=== PATIENT | female | born 1985 | race Caucasian/White ===

== ENCOUNTER 2019-12-23 08:14 | Outpatient (REF) | payer OTHER, SELFPAY ==
[2019-12-23 11:54] LABS: Alanine Aminotransferase 15 U/L (0-31); Albumin Level 4.3 g/dL (3.5-5.0); Alkaline Phosphatase 50 U/L (39-117); Anion Gap 15 (12-20); Aspartate Amino Transferase 16 U/L (5-31); Bilirubin Total 0.3 mg/dL (0.0-1.0); Blood Urea Nitrogen 11 mg/dL (9-16); Calcium 9.2 mg/dL (8.4-10.2); Carbon Dioxide 22 mmol/L (22-29); Chloride 105 mmol/L (96-108); Cholesterol 210 mg/dL; Estimated Glomerular Filt Rate > 60; Glucose Fasting 88 mg/dL (60-99); HDL Cholesterol 42 mg/dL; LDL Cholesterol Calculated 146 mg/dl; Potassium 4.4 mmol/l (3.3-5.1); Sodium 138 mmol/L (135-145); Total Protein 6.9 g/dL (6.5-8.0); Triglycerides 113 mg/dL
[2019-12-23 11:57] LABS: TSH reflex Free T4 0.17 mIU/mL (0.32-4.0)
[2019-12-23 12:33] LABS: Free T4 (Free Thyroxine) 1.33 ng/dL (0.71-1.85)
== END 2019-12-23 08:15 | disposition home or self-care (01) ==
LOC: HO.HMGCLDS 08:14
PROVIDERS: PCP Internal Medicine; Visit Provider Internal Medicine
DX: E03.8 Other specified hypothyroidism (principal); E78.9 Disorder of lipoprotein metabolism, unspecified; E66.01 Morbid (severe) obesity due to excess calories; Z68.41 Body mass index [BMI] 40.0-44.9, adult
CPT/HCPCS: 80053; 80061; 84439; 84443

== ENCOUNTER 2020-04-21 07:20 | Outpatient (REF) | payer OTHER, SELFPAY ==
[2020-04-21 11:56] LABS: Alanine Aminotransferase 20 U/L (0-31); Albumin Level 4.3 g/dL (3.5-5.0); Alkaline Phosphatase 55 U/L (39-117); Anion Gap 14 (12-20); Aspartate Amino Transferase 20 U/L (5-31); Bilirubin Direct < 0.2 mg/dL (0.0-0.5); Bilirubin Total 0.4 mg/dL (0.0-1.0); Blood Urea Nitrogen 9 mg/dL (9-16); Calcium 9.3 mg/dL (8.4-10.2); Carbon Dioxide 25 mmol/L (22-29); Chloride 103 mmol/L (96-108); Cholesterol 256 mg/dL; Estimated Glomerular Filt Rate > 60; Glucose Fasting 81 mg/dL (60-99); HDL Cholesterol 45 mg/dL; LDL Cholesterol Calculated 184 mg/dl; Potassium 4.4 mmol/L (3.3-5.1); Sodium 138 mmol/L (135-145); Total Protein 7.1 g/dL (6.5-8.0); Triglycerides 137 mg/dL
[2020-04-21 12:00] LABS: TSH reflex Free T4 0.26 uIU/mL (0.32-4.0)
[2020-04-21 12:34] LABS: Free T4 (Free Thyroxine) 1.37 ng/dL (0.71-1.85)
== END 2020-04-21 07:21 | disposition home or self-care (01) ==
LOC: HO.HMGCLDS 07:20
PROVIDERS: PCP Internal Medicine; Visit Provider Internal Medicine
DX: E78.9 Disorder of lipoprotein metabolism, unspecified (principal); E03.8 Other specified hypothyroidism
CPT/HCPCS: 36415; 80048; 80061; 80076; 84439; 84443

== ENCOUNTER 2020-11-30 13:13 | Outpatient (REF) | payer OTHER, SELFPAY ==
[2020-11-30 14:35] LABS: Alanine Aminotransferase 15 U/L (0-31); Albumin Level 4.2 g/dL (3.5-5.0); Alkaline Phosphatase 49 U/L (39-117); Aspartate Amino Transferase 15 U/L (5-31); Bilirubin Direct 0.2 mg/dL (0.0-0.5); Bilirubin Total 0.4 mg/dL (0.0-1.0); Cholesterol 216 mg/dL; HDL Cholesterol 40 mg/dL; LDL Cholesterol Calculated 145 mg/dl; Total Protein 6.6 g/dL (6.5-8.0); Triglycerides 158 mg/dL
[2020-11-30 14:40] LABS: TSH reflex Free T4 0.96 uIU/mL (0.32-4.0)
== END 2020-11-30 13:14 | disposition home or self-care (01) ==
LOC: HO.HMGCLDS 13:13
PROVIDERS: PCP Internal Medicine; Visit Provider Internal Medicine
DX: E78.9 Disorder of lipoprotein metabolism, unspecified (principal); E03.8 Other specified hypothyroidism
CPT/HCPCS: 36415; 80061; 80076; 84443

== ENCOUNTER 2021-06-01 06:15 | Outpatient (REF) | payer OTHER, SELFPAY ==
[2021-06-01 12:00] LABS: Alanine Aminotransferase 13 U/L (0-31); Alkaline Phosphatase 39 U/L (39-117); Aspartate Amino Transferase 15 U/L (5-31); Bilirubin Direct < 0.2 mg/dL (0.0-0.5); Bilirubin Total 0.3 mg/dL (0.0-1.0); Cholesterol 192 mg/dL; HDL Cholesterol 41 mg/dL; LDL Cholesterol Calculated 134 mg/dl; Total Protein 6.4 g/dL (6.5-8.0); Triglycerides 85 mg/dL
== END 2021-06-01 06:16 | disposition home or self-care (01) ==
LOC: HO.HMGCLDS 06:15
PROVIDERS: Visit Provider Internal Medicine
DX: E03.8 Other specified hypothyroidism (principal); E78.9 Disorder of lipoprotein metabolism, unspecified
CPT/HCPCS: 36415; 80061; 80076; 84443

== ENCOUNTER 2022-01-19 08:09 | Outpatient (REF) | payer OTHER, SELFPAY ==
[2022-01-19 11:09] LABS: MANUAL DIFF FLAG NO
[2022-01-19 11:15] LABS: Basophils Absolute Auto 0.1 X10*3/uL (0.0-0.2); Basophils Percent Auto 0.7 % (0-2); Eosinophils Absolute Auto 0.3 X10*3/uL (0.0-0.4); Eosinophils Percent Auto 3.4 % (0-4); Hematocrit 44.6 % (37.0-47.0); Hemoglobin 14.4 g/dl (12.0-16.0); Imm Gran Abs Auto 0.02 X10*3/uL (0.00-0.03); Imm Gran Pct Auto 0.3 % (0.0-0.4); Mean Corpuscular HGB Conc 32.3 g/dl (31.0-35.0); Mean Corpuscular Hemoglobin 31.3 pg (27.0-33.0); Mean Platelet Volume 10.3 fL (9.4-12.3); Monocytes Absolute Auto 0.5 X10*3/uL (0.1-1.2); Monocytes Percent Auto 6.2 % (2-11); Neutrophils Absolute Auto 4.9 x10*3/uL (2.0-8.3); Neutrophils Percent Auto 63.4 % (45-73); Platelet Count 329 X10*3/uL (160-400); Red Cell Distribution Width 13.2 % (11.0-16.0); White Blood Count 7.7 X10*3/uL (4.8-10.8)
[2022-01-19 11:37] LABS: Alanine Aminotransferase 14 U/L (0-31); Albumin Level 4.1 g/dL (3.5-5.0); Alkaline Phosphatase 42 U/L (39-117); Anion Gap 13 (12-20); Aspartate Amino Transferase 16 U/L (5-31); Bilirubin Total 0.3 mg/dL (0.0-1.0); Blood Urea Nitrogen 14 mg/dL (9-16); Calcium 9.4 mg/dL (8.4-10.2); Carbon Dioxide 27 mmol/L (22-29); Chloride 104 mmol/L (96-108); Cholesterol 211 mg/dL; Estimated Glomerular Filt Rate > 60; Glucose Fasting 72 mg/dL (60-99); HDL Cholesterol 53 mg/dL; LDL Cholesterol Calculated 141 mg/dl; Potassium 4.4 mmol/L (3.3-5.1); Sodium 140 mmol/L (135-145); Total Protein 6.4 g/dL (6.5-8.0); Triglycerides 87 mg/dL
[2022-01-19 11:59] LABS: TSH reflex Free T4 0.56 uIU/mL (0.32-4.0)
== END 2022-01-19 08:10 | disposition home or self-care (01) ==
LOC: HO.HMGCLDS 08:09
PROVIDERS: PCP Internal Medicine; Visit Provider Internal Medicine
DX: E03.8 Other specified hypothyroidism (principal); E78.9 Disorder of lipoprotein metabolism, unspecified
CPT/HCPCS: 36415; 80053; 80061; 84443; 85025

== ENCOUNTER → 2022-04-19 09:22 | Outpatient (BNVA) | payer OTHER, SELFPAY | PROVIDERS: PCP Internal Medicine; Referring Provider Internal Medicine; Visit Provider Surgery | DX: D17.1 Benign lipomatous neoplasm of skin and subcutaneous tissue of trunk (principal) | CPT/HCPCS: 99202 ==

== ENCOUNTER 2022-04-30 08:55 | Outpatient (REF) | payer OTHER, SELFPAY | END 2022-04-30 08:56 | disposition home or self-care (01) | LOC: HO.LNP 08:55 | PROVIDERS: PCP Internal Medicine; Visit Provider Surgery | DX: L72.9 Follicular cyst of the skin and subcutaneous tissue, unspecified (principal) | CPT/HCPCS: 88304; 99202 ==

== ENCOUNTER → 2022-05-10 09:00 | Outpatient (BNVA) | payer OTHER, SELFPAY | PROVIDERS: PCP Internal Medicine; Visit Provider Surgery | DX: L72.9 Follicular cyst of the skin and subcutaneous tissue, unspecified (principal) | CPT/HCPCS: 99212 ==

== ENCOUNTER 2023-04-04 08:25 | Outpatient (AMB) | payer OTHER, SELFPAY ==
[2023-04-04 08:33] VITALS: BP 112/66; PULSE 75; O2SAT 95; BMI 25.5
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
== END 2023-04-04 08:53 | disposition home or self-care (01) ==
PROVIDERS: Visit Provider Internal Medicine
DX: Z00.00 Encounter for general adult medical examination without abnormal findings (principal); E78.9 Disorder of lipoprotein metabolism, unspecified; E03.8 Other specified hypothyroidism; F17.210 Nicotine dependence, cigarettes, uncomplicated; Z91.09 Other allergy status, other than to drugs and biological substances
CPT/HCPCS: 99395

== ENCOUNTER 2023-04-04 08:55 | Outpatient (REF) | payer OTHER, SELFPAY ==
[2023-04-04 11:52] LABS: MANUAL DIFF FLAG NO
[2023-04-04 11:54] LABS: Basophils Absolute Auto 0.1 X10*3/uL (0.0-0.2); Basophils Percent Auto 0.5 % (0-2); Eosinophils Absolute Auto 0.1 X10*3/uL (0.0-0.4); Eosinophils Percent Auto 0.7 % (0-4); Hemoglobin 15.2 g/dl (12.0-16.0); Imm Gran Abs Auto 0.03 X10*3/uL (0.00-0.03); Imm Gran Pct Auto 0.3 % (0.0-0.4); Lymphocytes Absolute Auto 2.5 X10*3/uL (1.2-4.9); Lymphocytes Percent Auto 22.5 % (20-40); Mean Corpuscular Volume 96.8 fL (80.0-98.0); Mean Platelet Volume 10.2 fL (9.4-12.3); Monocytes Absolute Auto 0.6 X10*3/uL (0.1-1.2); Monocytes Percent Auto 5.3 % (2-11); Neutrophils Absolute Auto 7.9 x10*3/uL (2.0-8.3); Neutrophils Percent Auto 70.7 % (45-73); Platelet Count 380 X10*3/uL (160-400); Red Blood Count 4.75 X10*6/uL (4.20-5.50); Red Cell Distribution Width 13.2 % (11.0-16.0); White Blood Count 11.2 X10*3/uL (4.8-10.8)
[2023-04-04 12:34] LABS: Alanine Aminotransferase 15 U/L (0-31); Alkaline Phosphatase 41 U/L (39-117); Anion Gap 12 (12-20); Aspartate Amino Transferase 18 U/L (5-31); Bilirubin Total 0.3 mg/dL (0.0-1.0); Blood Urea Nitrogen 13 mg/dL (9-16); Calcium 9.8 mg/dL (8.4-10.2); Carbon Dioxide 25 mmol/L (22-29); Chloride 104 mmol/L (96-108); Cholesterol 214 mg/dL (<200); Estimated Glomerular Filt Rate > 60; Glucose Fasting 100 mg/dL (60-99); Glucose Random 99 mg/dL (60-115); HDL Cholesterol 51 mg/dL (>40); LDL Cholesterol Calculated 146 mg/dL (<100); Sodium 137 mmol/L (135-145); Triglycerides 88 mg/dL (<150)
[2023-04-05 13:09] LABS: LDL Cholesterol Direct 165 mg/dL (<100)
== END 2023-04-04 08:56 | disposition home or self-care (01) ==
LOC: HO.HMGCLDS 08:55
PROVIDERS: PCP Internal Medicine; Visit Provider Internal Medicine
DX: Z00.01 Encounter for general adult medical examination with abnormal findings (principal); E66.9 Obesity, unspecified; E78.9 Disorder of lipoprotein metabolism, unspecified; E03.8 Other specified hypothyroidism; Z91.09 Other allergy status, other than to drugs and biological substances; F17.200 Nicotine dependence, unspecified, uncomplicated
CPT/HCPCS: 36415; 80053; 80061; 83721; 84443; 85025

== ENCOUNTER 2023-10-15 08:33 | Outpatient (AMB) | payer OTHER, SELFPAY ==
[2023-10-15 08:35] VITALS: BP 118/74; PULSE 75; O2SAT 98; BMI 26.5
--- NOTE | 2023-10-15 08:35 | MHC.PC.OV ---
Vital Signs 10/15/23 08:35 Height 5 ft 5 in Weight 159 lb 8 oz BMI 26.5 BP 118/74 Blood Pressure Location Rt brachial Position Sitting Pulse 75 Pulse Source Pulse Oximeter Pulse Oximetry (%) 98 Oxygen Delivery Method Room Air Intake Visit Reasons: 6 month follow up Allergies No Known Allergies Allergy (Verified 10/15/23 08:36) Medication List - Last Reconciled 10/15/23 by Angel Walsh MD levothyroxine 125 mcg PO DAILY montelukast 10 mg PO DAILY 90 days Tobacco use date assessed: 10/15/23 Dental Screening Dental Screen Date: 10/15/23 Did you have a dental visit in the last 12 months?: Yes Did you have a dental problem in the last 6 months where you did not have access to dental care?: No Was dental information given to patient?: Patient has dentist HPI 6 month follow up HPI Details Patient is a 38-year-old female with a history of high cholesterol, smoker 3 cigarettes daily, hypothyroidism, allergies Came in for six-month follow-up appointment Patient is on levothyroxine 125 mcg, she is due for TSH check Allergies are acting up these days she is on montelukast, patient was notified to add long-acting antihistamine [id number] Also advised to stop smoking She has gained some weight, patient says that she is aware of it and will try to lose it. She will return in April for physical examination we will do whole set of lab before visit She does have impaired fasting sugar and elevated cholesterol as well. [facility] Medical History Ex-smoker Obesity Lipid disorder Other specified hypothyroidism Surgical History Fracture, ankle History of section Family History Father No problems noted. Mother No problems noted. Brother No problems noted. Brother No problems noted. Brother No problems noted. Son No problems noted. Sister No problems noted. Son No problems noted. Social History Housing: House Patient Tobacco Use Status: Current someday Tobacco user Tobacco use type: Cigarette Cigarettes Per Day: 5 e-Cigarette/Vaping Use: Never Used service: No Current occupational status: employed Cognitive needs: No Hearing needs: No Vision needs: No Questionnaire PHQ-9 Over the last 2 weeks, how often have you been bothered by any of the following problems? 1. Little interest or pleasure in doing things: not at all 2. Feeling down, depressed, or hopeless: several days 3. Trouble falling or staying asleep, or sleeping too much: not at all 4. Feeling tired or having little energy: several days 5. Poor appetite or overeating: not at all 6. Feeling bad about yourself - or that you are a failure or have let yourself or your family down: not at all 7. Trouble concentrating on things, such as reading the newspaper or watching television: not at all 8. Moving or speaking so slowly that other people could have noticed. Or the opposite - being so fidgety or restless that you have been moving around a lot more than usual: not at all 9. Thoughts that you would be better off or of hurting yourself in some way: not at all Total score: 2 Depression Screening Interpretation: Negative Depression Screening Done: Yes 68052 - PHQ-9 Billing: Yes Source: Developed by Drs. Mario Morrow, Tamara Joseph, Cristo Lind and colleagues, with an educational carmine from [employer]. Thrive Questionnaire Date Thrive assessed: 10/15/23 I am a: Patient What is your living situation today?: I have a steady place to live Within the past 12 months, did the food you bought not last and you didn't have the money to get more?: Never true Within the past 12 months, did you worry whether your food would run out before you got money to buy more?: Never true Do you have trouble paying for medicines?: No Do you have trouble getting transportation to medical appointments?: No Do you have trouble paying your heating and electricity bill?: No Do you have trouble taking care of your child, family member or friend?: No Do you have trouble with day-to-day activities such as bathing, preparing meals, shopping, managing finances, etc.?: No Are you currently unemployed and looking for a job?: No Are you interested in more education?: No Please select the resources that you would like help with: None Currently or been in a relationship where the following occur: No concerns reported THRIVE Score: 0 AUDIT C Alcohol Use Questionnaire (AUDIT-C) 1. How often do you have a drink containing alcohol?: Monthly or less 2. How many drinks containing alcohol do you have on a typical day when you are drinking?: 1 or 2 3. How often do you have six or more drinks on one occasion?: Never Total Score: 1 Score Reviewed/Action Taken: Yes KASSIDY-7 AMB Questionnaire KASSIDY-7 Date KASSIDY - 7 assessed: 10/15/23 Feeling nervous, anxious, or on edge: 1 = Several days Not being able to stop or control worryin = Several days Worrying too much about different things: 0 = Not at all Trouble relaxin = Not at all Being so restless that it is hard to sit still: 0 = Not at all Becoming easily annoyed or irritable: 0 = Not at all Feeling afraid as if something awful might happen: 0 = Not at all Total KASSIDY-7 score (0-4 normal; 5-9 mild; 10-14 moderate; 15-21 severe): 2 Source: Developed by Drs. Mario Morrow, Tamara Joseph, Cristo iLnd and colleagues, with an educational carmine from [employer]. KASSIDY-7 Assessment Billing KASSIDY-7 Assessment Tool: KASSIDY-7 Assessment 37641 Review of Systems Const Denies chills and Denies fever(s) ENT Denies epistaxis and Denies nasal discharge Card Denies chest pain Resp Denies chest congestion, Denies cough and Denies hemoptysis GI Denies diarrhea and Denies nausea Skin/Breast Denies rash Neuro Reports no additional complaints Psych Reports no additional complaints Endo Reports no additional complaints Physical exam (Primary Care) Vital Signs: Last Vital Signs Pulse 75 10/15/23 08:35 BP 118/74 10/15/23 08:35 Pulse Ox 98 10/15/23 08:35 Oxygen Delivery Method Room Air 10/15/23 08:35 BMI result Body Mass Index 26.5 Tobacco/Smoking Status: Tobacco use Status Tobacco use date assessed 10/15/23 10/15/23 08:39 Patient Tobacco Use Status Current someday Tobacco 10/15/23 08:39 Tobacco use type Cigarette 08/14/24 08:39 e-Cigarette/Vaping Use Never Used 10/15/23 08:39 PHQ-9: PHQ-9 Score PHQ-9: Total score 2 10/15/23 08:53 Depression Screening Interpretation: Negative Thrive Assessment: Date of Thrive Assessment Date Thrive assessed 10/15/23 10/15/23 08:39 Currently or been in a relationship where the following occur: No concerns reported Const General: cooperative, comfortable and no acute distress Orientation/consciousness: patient oriented x3 HENMT Head: Yes normocephalic Eyes General: appearance normal, both eyes and all related structures Neck Neck: Yes supple Resp Effort & Inspection: normal respiratory effort, no cough and no stridor Cardio Rhythm: regular rhythm Heart sounds: S1 normal heart sound present and S2 normal heart sound present Skin General skin exam: turgor normal Neuro General: patient oriented x3, tone normal and moves all extremities Extrem Right lower extremity: no edema Left lower extremity: no edema Assessment and Plan Assessment & Plan (1) Other specified hypothyroidism: Code(s): E03.8 - Other specified hypothyroidism (2) Lipid disorder: Code(s): E78.9 - Disorder of lipoprotein metabolism, unspecified (3) Environmental allergies: Code(s): Z91.09 - Other allergy status, other than to drugs and biological substances (4) Tobacco use disorder: Code(s): F17.200 - Nicotine dependence, unspecified, uncomplicated (5) Impaired fasting blood sugar: Code(s): R73.01 - Impaired fasting glucose Plan Patient is a 38-year-old female with a history of high cholesterol, smoker 3 cigarettes daily, hypothyroidism, allergies Came in for six-month follow-up appointment Patient is on levothyroxine 125 mcg, she is due for TSH check Allergies are acting up these days she is on montelukast, patient was notified to add long-acting antihistamine [id number] Also advised to stop smoking She has gained some weight, patient says that she is aware of it and will try to lose it. She will return in April for physical examination we will do whole set of lab before visit She does have impaired fasting sugar and elevated cholesterol as well. Orders: Orders TSH reflex Free T4 6 Months E03.8 - Other specified hypothyroidism, E66.9 - Obesity, unspecified, E78.9 - Disorder of lipoprotein metabolism, unspecified, F17.200 - Nicotine dependence, unspecified, uncomplicated, Z91.09 - Other allergy status, other than to drugs and biological substances TSH reflex Free T4 Today E03.8 - Other specified hypothyroidism Complete Blood Count Auto Diff 6 Months E03.8 - Other specified hypothyroidism, E66.9 - Obesity, unspecified, E78.9 - Disorder of lipoprotein metabolism, unspecified, F17.200 - Nicotine dependence, unspecified, uncomplicated, Z91.09 - Other allergy status, other than to drugs and biological substances Comprehensive [place]. Panel Fast 6 Months E03.8 - Other specified hypothyroidism, E66.9 - Obesity, unspecified, E78.9 - Disorder of lipoprotein metabolism, unspecified, F17.200 - Nicotine dependence, unspecified, uncomplicated, Z91.09 - Other allergy status, other than to drugs and biological substances Lipid Panel 6 Months E03.8 - Other specified hypothyroidism, E66.9 - Obesity, unspecified, E78.9 - Disorder of lipoprotein metabolism, unspecified, F17.200 - Nicotine dependence, unspecified, uncomplicated, Z91.09 - Other allergy status, other than to drugs and biological substances Hemoglobin A1c 6 Months E03.8 - Other specified hypothyroidism, E66.9 - Obesity, unspecified, E78.9 - Disorder of lipoprotein metabolism, unspecified, F17.200 - Nicotine dependence, unspecified, uncomplicated, Z91.09 - Other allergy status, other than to drugs and biological substances Coding Level of Care Code Est Pt Level 4 (27364) Diagnoses Other specified hypothyroidism E03.8 Lipid disorder E78.9 Environmental allergies Z91.09 Tobacco use disorder F17.200 Impaired fasting blood sugar R73.01 Additional Codes KASSIDY-7 Assessment Billing - KASSIDY-7 Assessment Tool: KASSIDY-7 Assessment 14224 ([id number])
== END 2023-10-15 08:49 | disposition home or self-care (01) ==
PROVIDERS: PCP Internal Medicine; Visit Provider Internal Medicine
DX: E03.8 Other specified hypothyroidism (principal); E78.9 Disorder of lipoprotein metabolism, unspecified; Z91.09 Other allergy status, other than to drugs and biological substances; F17.210 Nicotine dependence, cigarettes, uncomplicated; R73.01 Impaired fasting glucose
CPT/HCPCS: 99214

== ENCOUNTER 2023-10-15 08:54 | Outpatient (REF) | payer OTHER, SELFPAY ==
[2023-10-15 11:11] LABS: TSH reflex Free T4 0.33 uIU/mL (0.32-4.0)
== END 2023-10-15 08:55 | disposition home or self-care (01) ==
LOC: HO.HMGCLDS 08:54
PROVIDERS: PCP Internal Medicine; Visit Provider Internal Medicine
DX: E03.8 Other specified hypothyroidism (principal)
CPT/HCPCS: 36415; 84443

== ENCOUNTER 2023-12-22 12:12 | Outpatient (AMB) | payer OTHER, SELFPAY ==
--- NOTE | 2023-12-22 13:52 | AM.OFFWIN_ITS ---
Intake Vital Signs 12/22/23 13:55 Height 5 ft 5 in Weight 157 lb BMI 26.1 BP 126/80 Blood Pressure Location Lt brachial Position Sitting Pulse 74 Pulse Source Pulse Oximeter Pulse Oximetry (%) 98 Oxygen Delivery Method Room Air Intake Visit Reasons: EP-lt leg cyst Intake Note: Patient here for cyst on left lower leg that has been present since at least Friday. Patient Tobacco Use Status: Current someday Tobacco user Allergies No Known Allergies Allergy (Verified 12/22/23 13:55) Do you need a note to return to daycare/school/sports/work: Yes HPI HPI Comments History of Present Illness Details Patient is a 38-year-old female complaining of an abscess on her left calf x3 days. She states it was draining a little bit but now it just seems to be mostly red hot and hardened. She says this happened to her once before and she got an antibiotic and it cleared it right up. She thinks it is due to a ingrown hair. She states it is very tender as well [facility] Medical History Ex-smoker Obesity Lipid disorder Other specified hypothyroidism Surgical History Fracture, ankle History of section Family History Father No problems noted. Mother No problems noted. Brother No problems noted. Brother No problems noted. Brother No problems noted. Son No problems noted. Sister No problems noted. Son No problems noted. Social History Housing: House Patient Tobacco Use Status: Current someday Tobacco user Tobacco use type: Cigarette Cigarettes Per Day: 5 e-Cigarette/Vaping Use: Never Used service: No Current occupational status: employed Cognitive needs: No Hearing needs: No Vision needs: No Review of Systems Const All systems reviewed & are unremarkable except as noted in HPI and below Physical Exam Const General: cooperative, healthy appearing, comfortable, no acute distress and well developed Orientation/consciousness: patient oriented x3 Limitations: no limitations HEENT Head: Yes normal to inspection Eyes General: appearance normal, both eyes and all related structures Neck Neck: Yes normal visual inspection and Yes full ROM Resp Effort & Inspection: normal respiratory effort and able to speak in complete sentences Skin Other: 1.5cm round area of erythema, warmth, induration and scant drainage on left lower extremity, no ecchymosis, no lesions, no lacerations or abrasions noted Neuro General: patient oriented x3 Extrem General: Yes normal to inspection Assessment & Plan Assessment & Plan (1) Abscess: Code(s): L02.91 - Cutaneous abscess, unspecified Plan: Abscess does not appear to be drainable, it is indurated with only scant drainage We will treat with Keflex Plan see above Medications: New cephalexin 500 mg PO Q6H 20 caps 0RF Coding Level of Care Code Est Pt Level 3 (42534) Diagnoses Abscess L02.91
[2023-12-22 13:55] VITALS: BP 126/80; PULSE 74; O2SAT 98; BMI 26.1
== END 2023-12-22 14:04 | disposition home or self-care (01) ==
PROVIDERS: PCP Internal Medicine; Visit Provider Physician Assistant
DX: L02.91 Cutaneous abscess, unspecified (principal)

== ENCOUNTER → 2023-12-22 12:12 | Outpatient (BNVA) | payer OTHER, SELFPAY | PROVIDERS: PCP Internal Medicine; Visit Provider Physician Assistant | DX: L02.416 Cutaneous abscess of left lower limb (principal) | CPT/HCPCS: 99212 ==

== ENCOUNTER 2024-04-06 07:54 | Outpatient (REF) | payer OTHER, SELFPAY ==
[2024-04-06 10:23] LABS: MANUAL DIFF FLAG NO
[2024-04-06 10:57] LABS: Basophils Percent Auto 0.3 % (0-2); Eosinophils Absolute Auto 0.1 X10*3/uL (0.0-0.4); Eosinophils Percent Auto 0.8 % (0-4); Estimated Average Glucose 97 mg/dL; Hemoglobin 15.6 g/dl (12.0-16.0); Hemoglobin A1C 127.5321 umol/L; Imm Gran Abs Auto 0.05 X10*3/uL (0.00-0.03); Imm Gran Pct Auto 0.4 % (0.0-0.4); Lymphocytes Absolute Auto 2.6 X10*3/uL (1.2-4.9); Lymphocytes Percent Auto 22.3 % (20-40); Mean Corpuscular HGB Conc 33.2 g/dl (31.0-35.0); Mean Corpuscular Volume 93.4 fL (80.0-98.0); Mean Platelet Volume 10.1 fL (9.4-12.3); Monocytes Absolute Auto 0.7 X10*3/uL (0.1-1.2); Neutrophils Absolute Auto 8.1 x10*3/uL (2.0-8.3); Neutrophils Percent Auto 70.2 % (45-73); Platelet Count 368 X10*3/uL (160-400); Red Blood Count 5.03 X10*6/uL (4.20-5.50); Red Cell Distribution Width 13.4 % (11.0-16.0); Total Hemoglobin (HGBA1C) 4084.9434 umol/L; White Blood Count 11.5 X10*3/uL (4.8-10.8)
[2024-04-06 11:07] LABS: Alanine Aminotransferase 20 U/L (0-31); Albumin Level 4.1 g/dL (3.5-5.0); Alkaline Phosphatase 42 U/L (39-117); Anion Gap 15 (12-20); Aspartate Amino Transferase 25 U/L (5-31); Bilirubin Total 0.3 mg/dL (0.0-1.0); Blood Urea Nitrogen 12 mg/dL (9-16); Calcium 9.3 mg/dL (8.4-10.2); Carbon Dioxide 24 mmol/L (22-29); Chloride 104 mmol/L (96-108); Cholesterol 243 mg/dL (<200); Estimated Glomerular Filt Rate > 60; Glucose Fasting 80 mg/dL (60-99); HDL Cholesterol 45 mg/dL (>40); LDL Cholesterol Calculated 173 mg/dL (<100); Potassium 4.3 mmol/L (3.3-5.1); Sodium 139 mmol/L (135-145); Total Protein 7.4 g/dL (6.5-8.0); Triglycerides 129 mg/dL (<150)
[2024-04-06 11:28] LABS: TSH reflex Free T4 0.92 uIU/mL (0.32-4.0)
== END 2024-04-06 07:55 | disposition home or self-care (01) ==
LOC: HO.HMGCLDS 07:54
PROVIDERS: PCP Internal Medicine; Visit Provider Internal Medicine
DX: E03.8 Other specified hypothyroidism (principal); E78.9 Disorder of lipoprotein metabolism, unspecified; E66.9 Obesity, unspecified; Z91.09 Other allergy status, other than to drugs and biological substances; F17.200 Nicotine dependence, unspecified, uncomplicated
CPT/HCPCS: 36415; 80053; 80061; 83036; 84443; 85025

== ENCOUNTER 2024-04-09 10:55 | Outpatient (AMB) | payer OTHER, SELFPAY ==
[2024-04-09 10:58] VITALS: BP 126/80; PULSE 80; O2SAT 99; BMI 27.0
--- NOTE | 2024-04-09 10:58 | A.OFFPC_ITS ---
Vital Signs 04/09/24 10:58 Height 5 ft 5 in Weight 162 lb 4 oz BMI 27.0 BP 126/80 Blood Pressure Location Lt brachial Position Sitting Pulse 80 Pulse Source Pulse Oximeter Pulse Oximetry (%) 99 Oxygen Delivery Method Room Air Intake Visit Reasons: PE Allergies No Known Allergies Allergy (Verified 04/09/24 10:58) Medication List - Last Reconciled 04/09/24 by Angel Walsh MD levothyroxine 125 mcg PO DAILY montelukast 10 mg PO DAILY 90 days Tobacco use date assessed: 04/09/24 Dental Screening Dental Screen Date: 04/09/24 Did you have a dental visit in the last 12 months?: Yes Did you have a dental problem in the last 6 months where you did not have access to dental care?: No Was dental information given to patient?: Patient has dentist HPI PE HPI Details Physical exam appointment - The patient is a 38-year-old female pr esenting with hypercholesterolemia. - The patient's cholesterol level has wo rsened since last year, now at 173 mg/dL from a previous level of 146 mg/dL. - Weight has increased to 162 pounds fro m 157 in December, indicating gradual weight gain over the past year - Social smoking at work occasionally in fluences her smoking habit of over 15 years. - Maintains control of hypothyroidism by taking levothyroxine daily. Health Maintenance - High cholesterol addressed with new in dication prescription (atorvastatin). - Advised to schedule a mammogram for [facility] cancer screening. - Discussed the importance of repeat lab s in six to eight weeks post-initiation of cholesterol medication. - Patient's vaccinations are up-to-date, including the influenza vaccine. - Encouragement to complete more regular physical activity to support weight management and overall health. - Encouraged to discontinue social smoki ng for lung health improvement. Diagnostic results - Labs: Current cholesterol level at 173 mg/dL Patient Instructions - Start taking atorvastatin 20 mg for ch olesterol management nightly. - Continue levothyroxine daily at night. - Schedule and attend a [facility] appoin t[facility]. - Repeat fasting labs in six to eight we eks to monitor cholesterol levels. - Increase physical activity to aid with weight loss and mood improvement. - Quit smoking completely to improve mikey g function and overall health. - Monitor mood for signs of depression a nd discuss with provider if symptoms persist. Review of Systems - General: No fever no chills - Neurological: No headaches no dizzin ess - Ear nose throat: No sore throat no hearing difficulty no ear pain - Cardiovascular: No syncope, no chest pain, no palpitations - Gastrointestinal: No nausea vomiting or diarrhea - Endocrine: No polyuria polydipsia no heat intolerance - Genitourinary: No dysuria - Skin: No new complaints Physical Exam General: Cooperative, healthy appearing, comfortable, no acute distress Orientation: Patient oriented x3 Limitations: None Head: Normal to inspection Ears: Within normal limit visually Nose: Normal external nose present Face and sinus: Normal facial exam Eyes: Appearance normal, extraocular movement intact pupils reactive Neck: Normal visual inspection and supple Respiratory: Lungs not expanding fully, some damage noted Breast exam through OBGYN Cardiovascular: S1 and S2 GI: Normal to inspection. Soft to palpation and nontender Skin: Turgor normal, no acute findings, no changing moles or rash, history of cyst removal Neuro: Patient oriented x3, motor sensory intact, balance intact, tandem pass Extremities: Normal to inspection [facility] Medical History Ex-smoker Obesity Lipid disorder Other specified hypothyroidism Surgical History Fracture, ankle History of section Family History Father No problems noted. Mother No problems noted. Brother No problems noted. Brother No problems noted. Brother No problems noted. Son No problems noted. Sister No problems noted. Son No problems noted. Social History Housing: House Patient Tobacco Use Status: Current someday Tobacco user Tobacco use type: Cigarette Cigarettes Per Day: 5 e-Cigarette/Vaping Use: Never Used service: No Current occupational status: employed Cognitive needs: No Hearing needs: No Vision needs: No Questionnaire PHQ-9 Over the last 2 weeks, how often have you been bothered by any of the following problems? 1. Little interest or pleasure in doing things: not at all 2. Feeling down, depressed, or hopeless: several days 3. Trouble falling or staying asleep, or sleeping too much: several days 4. Feeling tired or having little energy: several days 5. Poor appetite or overeating: not at all 6. Feeling bad about yourself - or that you are a failure or have let yourself or your family down: not at all 7. Trouble concentrating on things, such as reading the newspaper or watching television: not at all 8. Moving or speaking so slowly that other people could have noticed. Or the opposite - being so fidgety or restless that you have been moving around a lot more than usual: not at all 9. Thoughts that you would be better off or of hurting yourself in some way: not at all Total score: 3 Depression Screening Interpretation: Negative Depression Screening Done: Yes 21911 - PHQ-9 Billing: Yes Source: Developed by Drs. Mario Morrow, Tamara Joseph, Cristo Lind and colleagues, with an educational carmine from [employer] Thrive Questionnaire Date Thrive assessed: 04/09/24 I am a: Patient What is your living situation today?: I have a steady place to live Within the past 12 months, did the food you bought not last and you didn't have the money to get more?: Never true Within the past 12 months, did you worry whether your food would run out before you got money to buy more?: Never true Do you have trouble paying for medicines?: No Do you have trouble getting transportation to medical appointments?: No Do you have trouble paying your heating and electricity bill?: No Do you have trouble taking care of your child, family member or friend?: No Do you have trouble with day-to-day activities such as bathing, preparing meals, shopping, managing finances, etc.?: No Are you currently unemployed and looking for a job?: No Are you interested in more education?: No Please select the resources that you would like help with: None Currently or been in a relationship where the following occur: No concerns reported THRIVE Score: 0 AUDIT C Alcohol Use Questionnaire (AUDIT-C) 1. How often do you have a drink containing alcohol?: Monthly or less 2. How many drinks containing alcohol do you have on a typical day when you are drinking?: 1 or 2 3. How often do you have six or more drinks on one occasion?: Never Total Score: 1 Score Reviewed/Action Taken: Yes KASSIDY-7 AMB Questionnaire KASSIDY-7 Date KASSIDY - 7 assessed: 04/09/24 Feeling nervous, anxious, or on edge: 0 = Not at all Not being able to stop or control worryin = Not at all Worrying too much about different things: 0 = Not at all Trouble relaxin = Not at all Being so restless that it is hard to sit still: 1 = Several days Becoming easily annoyed or irritable: 0 = Not at all Feeling afraid as if something awful might happen: 0 = Not at all Total KASSIDY-7 score (0-4 normal; 5-9 mild; 10-14 moderate; 15-21 severe): 1 Source: Developed by Drs. Mario Morrow, Tamara Joseph, Cristo Lind and colleagues, with an educational carmine from [employer]. KASSIDY-7 Assessment Billing KASSIDY-7 Assessment Tool: KASSIDY-7 Assessment 45655 Physical exam (Primary Care) Vital Signs: Last Vital Signs Pulse 80 04/09/24 10:58 BP 126/80 04/09/24 10:58 Pulse Ox 99 04/09/24 10:58 Oxygen Delivery Method Room Air 04/09/24 10:58 BMI result Body Mass Index 27.0 Tobacco/Smoking Status: Tobacco use Status Tobacco use date assessed 04/09/24 04/09/24 11:01 Patient Tobacco Use Status Current someday Tobacco 04/09/24 11:01 Tobacco use type Cigarette 04/09/24 11:01 e-Cigarette/Vaping Use Never Used 04/09/24 11:01 PHQ-9: PHQ-9 Score PHQ-9: Total score 3 04/09/24 11:01 Depression Screening Interpretation: Negative Thrive Assessment: Date of Thrive Assessment Date Thrive assessed 04/09/24 04/09/24 11:01 Currently or been in a relationship where the following occur: No concerns reported Coding Level of Care Code Est Pt Level 3 (12083) Est Pt Prev Care 40-64y(79904) Diagnoses Encounter for general adult medical examination with abnormal findings Z00.01 Lipid disorder E78.9 Other specified hypothyroidism E03.8 Tobacco use disorder F17.200 Impaired fasting blood sugar R73.01 Additional Codes KASSIDY-7 Assessment Billing - KASSIDY-7 Assessment Tool: KASSIDY-7 Assessment 65575 ([id number]) PHQ-9 - 62414 - PHQ-9 Billing: Yes ([id number]) Assessment & Plan Assessment & Plan (1) Encounter for general adult medical examination with abnormal findings: Code(s): Z00.01 - Encounter for general adult medical examination with abnormal findings Category: Medical (2) Lipid disorder: Code(s): E78.9 - Disorder of lipoprotein metabolism, unspecified Category: Medical (3) Other specified hypothyroidism: Code(s): E03.8 - Other specified hypothyroidism Category: Medical (4) Tobacco use disorder: Code(s): F17.200 - Nicotine dependence, unspecified, uncomplicated Category: Medical (5) Impaired fasting blood sugar: Code(s): R73.01 - Impaired fasting glucose Category: Medical Plan Physical exam appointment - The patient is a 38-year-old female presenting with hypercholesterolemia. - The patient's cholesterol level has worsened since last year, now at 173 mg/dL from a previous level of 146 mg/dL. - Weight has increased to 162 pounds from 157 in December, indicating gradual weight gain over the past year - Social smoking at work occasionally influences her smoking habit of over 15 years. - Maintains control of hypothyroidism by taking levothyroxine daily. Health Maintenance - High cholesterol addressed with new medication prescription (atorvastatin). - Advised to schedule a mammogram for breast cancer screening. - Discussed the importance of repeat labs in six to eight weeks post-initiation of cholesterol medication. - Patient's vaccinations are up-to-date, including the influenza vaccine. - Encouragement to complete more regular physical activity to support weight management and overall health. - Encouraged to discontinue social smoking for lung health improvement. Diagnostic results - Labs: Current cholesterol level at 173 mg/dL Patient Instructions - Start taking atorvastatin 20 mg for cholesterol management nightly. - Continue levothyroxine daily at night. - Schedule and attend a mammogram appointment at [facility]. - Repeat fasting labs in six to eight weeks to monitor cholesterol levels. - Increase physical activity to aid with weight loss and mood improvement. - Quit smoking completely to improve lung function and overall health. - Monitor mood for signs of depression and discuss with provider if symptoms persist. Orders: Orders Lipid Panel 6 Weeks E78.9 - Disorder of lipoprotein metabolism, unspecified MM tomosynthesis screening BI Today Z12.31 - Encounter for screening mammogram for malignant neoplasm of breast Liver Panel 6 Weeks E78.9 - Disorder of lipoprotein metabolism, unspecified Referrals COMPUTER SUPPORT SPECIALIST Referral Z01.419 - Encounter for gynecological examination (general) (routine) without abnormal findings Medications: New atorvastatin 20 mg PO BEDTIME 90 tabs 0RF atorvastatin 20 mg PO BEDTIME 90 tabs 0RF
== END 2024-04-09 11:40 | disposition home or self-care (01) ==
PROVIDERS: PCP Internal Medicine; Visit Provider Internal Medicine
DX: Z00.00 Encounter for general adult medical examination without abnormal findings (principal); E78.9 Disorder of lipoprotein metabolism, unspecified; E03.8 Other specified hypothyroidism; F17.200 Nicotine dependence, unspecified, uncomplicated; R73.01 Impaired fasting glucose

== ENCOUNTER → 2024-04-09 10:55 | Outpatient (BNVA) | payer OTHER, SELFPAY | PROVIDERS: PCP Internal Medicine; Visit Provider Internal Medicine | DX: Z00.01 Encounter for general adult medical examination with abnormal findings (principal); E78.9 Disorder of lipoprotein metabolism, unspecified; E03.8 Other specified hypothyroidism; R73.01 Impaired fasting glucose; F17.200 Nicotine dependence, unspecified, uncomplicated; Z71.6 Tobacco abuse counseling | CPT/HCPCS: 96127; 99212; 99396 ==

== ENCOUNTER 2024-10-08 12:00 | Outpatient (AMB) | payer OTHER, SELFPAY ==
--- NOTE | 2024-10-08 12:02 | MHC.PC.OV ---
Vital Signs 10/08/24 12:03 Height 5 ft 5 in Weight 176 lb BMI 29.3 BP 118/70 Blood Pressure Location Rt brachial Position Sitting Respiration 18 Pulse 80 Pulse Source Pulse Oximeter Temp 99.0 F Temp Source Oral Pulse Oximetry (%) 98 Oxygen Delivery Method Room Air Intake Visit Reasons: 6m follow up Allergies No Known Allergies Allergy (Verified 10/08/24 12:04) Medication List - Last Reconciled 10/08/24 by Angel Walsh MD atorvastatin 20 mg PO BEDTIME levothyroxine 125 mcg PO DAILY montelukast 10 mg PO DAILY 90 days Tobacco use date assessed: 10/08/24 Dental Screening Dental Screen Date: 10/08/24 Did you have a dental visit in the last 12 months?: Yes Did you have a dental problem in the last 6 months where you did not have access to dental care?: No Was dental information given to patient?: Patient has dentist HPI 6m follow up HPI Details Ongoing care appointment History of Present Illness The patient is a 39-year-old female presenting with weight gain and allergy concerns. Weight Gain: - Patient observed weight increase from 162 pounds in April to 176 pounds currently. - History of significant weight loss, reducing from 265 pounds over three years. - Maintains a busy schedule, works Friday through Friday, and typically hikes on Sundays. - Recent exacerbation of allergies limited physical activity, resulting in reduced exercise. - Expresses distress over weight gain, identifying a need to resume weight management. Allergic Rhinitis: - Complains of severe allergies this summer, more problematic compared to previous years. - Symptoms include nasal congestion, exacerbated by poor air quality. - Currently takes Montelukast but acknowledges the need for additional allergy management. - Reports difficulty in participating in outdoor activities due to allergies. Medical History: - Obesity (formerly weighed 265 pounds, currently 176 pounds) - Hyperlipidemia - Hypothyroidism - Allergic Rhinitis Medications: - Atorvastatin 20 mg for hyperlipidemia, taken at night but with inconsistent adherence. - Levothyroxine 125 mcg for hypothyroidism, taken diligently every morning. - Montelukast for allergy management. Social History: - Single mother with two children; older son is active in hockey. - Works Friday to Friday; physically active on weekends but limited by allergies. - Experiences financial considerations influencing nutrition; prioritizes children's needs. - Past smoker, occasionally resumes smoking during periods of stress. - History of significant weight loss through personal effort and motivation. Diagnostic Results: - Labs (April): Normal hemoglobin, renal function, blood glucose, liver enzymes; high LDL. Problem List - Hyperlipidemia - Hypothyroidism - Allergic Rhinitis - overweight - allergies worse Patient Instructions - Start consistently taking prescribed medications, especially for cholesterol management. - Consider adding an additional allergy medication for better control. - Repeat laboratory tests in six weeks to evaluate cholesterol management. - Schedule time for regular physical activity to aid in weight management. - Utilize flexible spending options for cost-effective medication purchases. Review of Systems - General: No fever no chills - Neurological: No headaches no dizziness - Ear nose throat: No sore throat no hearing difficulty no ear pain - Cardiovascular: No syncope, no chest pain, no palpitations - Gastrointestinal: No nausea vomiting or diarrhea - Endocrine: No polyuria polydipsia no heat intolerance - Genitourinary: No dysuria , no blood in urine Physical Exam General: No acute distress HEENT: Congestion noted Neck: Supple Respiratory system: Able to talk in full sentences, no audible wheeze Cardiovascular: S1-S2 regular in rate and rhythm Gastrointestinal: No nausea, vomiting, or constipation Extremities: No new findings JUDICIAL CLERK: Alert awake oriented x3 motor sensory intact Skin: Normal turgor [facility] Medical History Ex-smoker Obesity Lipid disorder Other specified hypothyroidism Surgical History Fracture, ankle History of section Family History Father No problems noted. Mother No problems noted. Brother No problems noted. Brother No problems noted. Brother No problems noted. Son No problems noted. Sister No problems noted. Son No problems noted. Social History Housing: House Patient Tobacco Use Status: Current someday Tobacco user Tobacco use type: Cigarette Cigarettes Per Day: 5 e-Cigarette/Vaping Use: Never Used service: No Current occupational status: employed Cognitive needs: No Hearing needs: No Vision needs: No Questionnaire Thrive Questionnaire Date Thrive assessed: 04/09/24 I am a: Patient What is your living situation today?: I have a steady place to live Within the past 12 months, did the food you bought not last and you didn't have the money to get more?: Never true Within the past 12 months, did you worry whether your food would run out before you got money to buy more?: Never true Do you have trouble paying for medicines?: No Do you have trouble getting transportation to medical appointments?: No Do you have trouble paying your heating and electricity bill?: No Do you have trouble taking care of your child, family member or friend?: No Do you have trouble with day-to-day activities such as bathing, preparing meals, shopping, managing finances, etc.?: No Are you currently unemployed and looking for a job?: No Are you interested in more education?: No Please select the resources that you would like help with: None Currently or been in a relationship where the following occur: No concerns reported THRIVE Score: 0 KASSIDY-7 AMB Questionnaire KASSIDY-7 Date KASSIDY - 7 assessed: 04/09/24 Source: Developed by Drs. Mario Morrow, Tamara Joseph, Cristo Lind and colleagues, with an educational carmine from [employer]. Physical exam (Primary Care) Vital Signs: Last Vital Signs Temp 99.0 F 10/08/24 12:03 Pulse 80 10/08/24 12:03 Resp 18 10/08/24 12:03 BP 118/70 10/08/24 12:03 Pulse Ox 98 10/08/24 12:03 Oxygen Delivery Method Room Air 10/08/24 12:03 BMI result Body Mass Index 29.3 Tobacco/Smoking Status: Tobacco use Status Tobacco use date assessed 10/08/24 10/08/24 12:07 Patient Tobacco Use Status Current someday Tobacco 10/08/24 12:07 Tobacco use type Cigarette 10/08/24 12:07 e-Cigarette/Vaping Use Never Used 10/08/24 12:07 Thrive Assessment: Date of Thrive Assessment Date Thrive assessed 04/09/24 10/08/24 12:07 Currently or been in a relationship where the following occur: No concerns reported Coding Level of Care Code Est Pt Level 4 (60020) Diagnoses Other specified hypothyroidism E03.8 Lipid disorder E78.9 Environmental allergies Z91.09 Tobacco use disorder F17.200 Impaired fasting blood sugar R73.01 Assessment & Plan Assessment & Plan (1) Other specified hypothyroidism: Code(s): E03.8 - Other specified hypothyroidism Category: Medical (2) Lipid disorder: Code(s): E78.9 - Disorder of lipoprotein metabolism, unspecified Category: Medical (3) Environmental allergies: Code(s): Z91.09 - Other allergy status, other than to drugs and biological substances Category: Medical (4) Tobacco use disorder: Code(s): F17.200 - Nicotine dependence, unspecified, uncomplicated Category: Medical (5) Impaired fasting blood sugar: Code(s): R73.01 - Impaired fasting glucose Category: Medical Plan Ongoing care appointment History of Present Illness The patient is a 39-year-old female presenting with weight gain and allergy concerns. Weight Gain: - Patient observed weight increase from 162 pounds in April to 176 pounds currently. - History of significant weight loss, reducing from 265 pounds over three years. - Maintains a busy schedule, works Friday through Friday, and typically hikes on Sundays. - Recent exacerbation of allergies limited physical activity, resulting in reduced exercise. - Expresses distress over weight gain, identifying a need to resume weight management. Allergic Rhinitis: - Complains of severe allergies this summer, more problematic compared to previous years. - Symptoms include nasal congestion, exacerbated by poor air quality. - Currently takes Montelukast but acknowledges the need for additional allergy management. - Reports difficulty in participating in outdoor activities due to allergies. Medical History: - Obesity (formerly weighed 265 pounds, currently 176 pounds) - Hyperlipidemia - Hypothyroidism - Allergic Rhinitis Medications: - Atorvastatin 20 mg for hyperlipidemia, taken at night but with inconsistent adherence. - Levothyroxine 125 mcg for hypothyroidism, taken diligently every morning. - Montelukast for allergy management. Social History: - Single mother with two children; older son is active in hockey. - Works Friday to Friday; physically active on weekends but limited by allergies. - Experiences financial considerations influencing nutrition; prioritizes children's needs. - Past smoker, occasionally resumes smoking during periods of stress. - History of significant weight loss through personal effort and motivation. Diagnostic Results: - Labs (April): Normal hemoglobin, renal function, blood glucose, liver enzymes; high LDL. Problem List - Hyperlipidemia - Hypothyroidism - Allergic Rhinitis - overweight - allergies worse Patient Instructions - Start consistently taking prescribed medications, especially for cholesterol management. - Consider adding an additional allergy medication for better control. - Repeat laboratory tests in six weeks to evaluate cholesterol management. - Schedule time for regular physical activity to aid in weight management. - Utilize flexible spending options for cost-effective medication purchases. Orders: Orders Complete Blood Count Auto Diff Today E03.8 - Other specified hypothyroidism, E78.9 - Disorder of lipoprotein metabolism, unspecified, F17.200 - Nicotine dependence, unspecified, uncomplicated, R73.01 - Impaired fasting glucose, Z91.09 - Other allergy status, other than to drugs and biological substances Comprehensive Met. Panel Today E03.8 - Other specified hypothyroidism, E78.9 - Disorder of lipoprotein metabolism, unspecified, F17.200 - Nicotine dependence, unspecified, uncomplicated, R73.01 - Impaired fasting glucose, Z91.09 - Other allergy status, other than to drugs and biological substances Lipid Panel 5 Months E03.8 - Other specified hypothyroidism, E78.9 - Disorder of lipoprotein metabolism, unspecified, R73.01 - Impaired fasting glucose TSH reflex Free T4 5 Months E03.8 - Other specified hypothyroidism, E78.9 - Disorder of lipoprotein metabolism, unspecified, R73.01 - Impaired fasting glucose TSH reflex Free T4 Today E03.8 - Other specified hypothyroidism, E78.9 - Disorder of lipoprotein metabolism, unspecified, F17.200 - Nicotine dependence, unspecified, uncomplicated, R73.01 - Impaired fasting glucose, Z91.09 - Other allergy status, other than to drugs and biological substances Lipid Panel Today E03.8 - Other specified hypothyroidism, E78.9 - Disorder of lipoprotein metabolism, unspecified, F17.200 - Nicotine dependence, unspecified, uncomplicated, R73.01 - Impaired fasting glucose, Z91.09 - Other allergy status, other than to drugs and biological substances Comprehensive [place]. Panel Fast 5 Months E03.8 - Other specified hypothyroidism, E78.9 - Disorder of lipoprotein metabolism, unspecified, R73.01 - Impaired fasting glucose Medications: New cetirizine (Zyrtec) 10 mg PO DAILY PRN 90 tabs 2RF allergy symptoms
[2024-10-08 12:03] VITALS: BP 118/70; PULSE 80; RESP 18; TEMP 37.2; O2SAT 98; BMI 29.3
== END 2024-10-08 12:21 | disposition home or self-care (01) ==
LOC: HO.HMCC 12:01
PROVIDERS: PCP Internal Medicine; Visit Provider Internal Medicine
DX: E03.8 Other specified hypothyroidism (principal); E78.9 Disorder of lipoprotein metabolism, unspecified; Z91.09 Other allergy status, other than to drugs and biological substances; F17.200 Nicotine dependence, unspecified, uncomplicated; R73.01 Impaired fasting glucose

== ENCOUNTER → 2024-10-08 12:00 | Outpatient (BNVA) | payer OTHER, SELFPAY | PROVIDERS: PCP Internal Medicine; Visit Provider Internal Medicine | DX: R63.5 Abnormal weight gain (principal); J30.9 Allergic rhinitis, unspecified; E03.8 Other specified hypothyroidism; E78.9 Disorder of lipoprotein metabolism, unspecified; F17.200 Nicotine dependence, unspecified, uncomplicated; R73.01 Impaired fasting glucose; Z91.09 Other allergy status, other than to drugs and biological substances | CPT/HCPCS: 99212 ==